=== PATIENT | female | born 1990 | race Caucasian/White ===

== ENCOUNTER 2017-08-31 10:25 | Emergency (ER) | END 2017-08-31 14:05 | disposition home or self-care (01) ==

== ENCOUNTER 2017-10-20 12:53 | Emergency (ER) | END 2017-10-21 05:48 | disposition home or self-care (01) ==

== ENCOUNTER 2018-04-12 08:45 | Emergency (ER) | END 2018-04-12 12:07 | disposition home or self-care (01) ==

== ENCOUNTER 2018-08-14 07:36 | Emergency (ER) | payer OTHER ==
[~2018-08-14] VITALS: Ht 165.1 cm; Wt 100.0 kg
[2018-08-14 07:39] VITALS: BP 134/87; PULSE 98; RESP 20; Ht 165.1 cm; Wt 100.0 kg
[2018-08-14] MEDS ORDERED: NAPR-985 PO (08:05)
[2018-08-14] MEDS ORDERED: CEPH-443 PO (08:05)
[2018-08-14] MEDS ORDERED: SULF1TAB31 PO (08:05)
--- NOTE | 2018-08-14 10:18 | ERD ---
ER Documentation Chief Complaint Chief Complaint Complains of swelling of the legs caused by a scracth from a dog HPI 27 year-old [female] coming in today with Chief Complaint: Skin injury History of Present Illness: Family member bring patient in today with complaint of swelling of legs; patient reports she believes it was due to a dog scratching her. Skin lesion noted to medial left lower extremity, below the knee. Patient also reporting pain to the fifth toe of left foot. Denies any other associated symptoms. Denies use of medications at home for symptoms. Review of systems: All systems were reviewed and are negative except for what is indicated in the history of present illness. Past Medical History: Cerebral palsy, GERD, migraines, chronic leg swelling Social History: Cholecystectomy, ovarian cyst removal Medications: [Reviewed as documented Nursing Notes] Allergies: [NKDA] Social Concerns: Denies ROS All systems reviewed and are negative except as per history of present illness. Medications Home Meds Active Scripts Naproxen* (Naprosyn*) 500 Mg Tablet, 500 MG PO BID PRN for PAIN AND/OR INFLAMMATION, #30 TAB Prov:WILL PEREZ V [employer]ATION[employer] 08/14/18 Cephalexin* (Keflex*) 500 Mg Capsule, 500 MG PO QID for skin infection for 7 Days, CAP Prov:WILL PEREZ [employer]ATIONIST 08/14/18 Sulfamethoxazole/Trimethoprim* (Bactrim Ds* Tablet) 1 Each Tablet, 1 TAB PO BID for 7 Days, #14 TAB Prov:WILL PEREZ [employer]ATIONIST 08/14/18 Allergies Allergies: Coded Allergies: No Known Allergy (Unverified , 07/12/18) PMhx/Soc History of Surgery: Yes (APPENDIX, GALL BLADDER, OVARAIN CYST ) Anesthesia Reaction: No Hx Neurological Disorder: Yes (CEREBRAL PALSY) Hx Respiratory Disorders: No Hx Cardiac Disorders: No Hx Psychiatric Problems: No Hx Miscellaneous Medical Probl: No Hx Alcohol Use: No Hx Substance Use: No Hx Tobacco Use: No FmHx Family History: diabetes; No coronary disease Physical Exam Vitals Vital Signs Date Temp Pulse Resp B/P (MAP) Pulse Ox O2 O2 Flow FiO2 Time Delivery Rate 08/14/18 98.6 98 20 134/87 100 07:39 (103) Physical Exam Const: No acute distress Head: Atraumatic Eyes: Normal Conjunctiva ENT: Normal External Ears, Nose and Mouth. Neck: Full range of motion. No meningismus. Resp: Clear to auscultation bilaterally Cardio: Regular rate and rhythm, no murmurs Abd: Soft, non tender, non distended. Normal bowel sounds Skin: No petechiae or rashes Back: No midline or flank tenderness Ext: No cyanosis; 1+ edema noted to the lateral extremities; 2 cm area of erythema noted to medial aspect of left lower extremity below-knee, indurated, warm, no surrounding cellulitis, no fluctuance, no streaking; erythema, warmth, and tenderness to palpation noted to the toe left foot, no streaking, NVI Neur: Awake and alert Psych: Normal Mood and Affect Procedures/MDM ED course includes a thorough examination and history. ED course includes x-ray of left foot, deferred due to patient request; education given for strict follow-up for worsening of condition. Unable to rule out pathological findings without x-ray, including osteomyelitis. Low suspicion for life-threatening medical emergency or sepsis orthopedic medical emergency Otherwise healthy patient presenting with constellation of symptoms likely representing uncomplicated abscess to left lower extremity and cellulitis toe as characterized by history, physical exam findings. No respiratory distress, otherwise relatively well appearing and nontoxic. Patient educated on diagnoses, prescriptions [Bactrim and cephalexin], follow-up care, return precautions. Strict return precautions given for worsening condition; questions answered discharge. Disposition for discharge with followup in 2-3 days with PCP/clinic to ensure that antibiotics are treating infection appropriately and infection is not worsening. Departure Diagnosis: Primary Impression: Abscess of leg, left Additional Impression: Cellulitis of fifth toe, left Condition: Stable Patient Instructions: Abscess, Antiobiotic Treatment Only, Cellulitis Referrals: [facility] YOU HAVE RECEIVED A MEDICAL SCREENING EXAM AND THE RESULTS INDICATE THAT YOU DO NOT HAVE A CONDITION THAT REQUIRES URGENT TREATMENT IN THE EMERGENCY DEPARTMENT. FURTHER EVALUATION AND TREATMENT OF YOUR CONDITION CAN WAIT UNTIL YOU ARE SEEN IN YOUR DOCTORS OFFICE WITHIN THE NEXT 1-2 DAYS. IT IS YOUR RESPONSIBILITY TO MAKE AN APPOINTMENT FOR FOLOW-UP CARE. IF YOU HAVE A PRIMARY DOCTOR --you should call your primary doctor and schedule an appointment IF YOU DO NOT HAVE A PRIMARY DOCTOR YOU CAN CALL OUR PHYSICIAN REFERRAL HOTLINE AT IF YOU CAN NOT AFFORD TO SEE A PHYSICIAN YOU CAN CHOSE FROM THE FOLLOWING COUNTS INCLUDE 234 BEDS AT THE [facility] [address] [facility] [place] [facility] [address] [facility] [address] [facility] [address] [facility] [address] [facility]. [facility] [address] [facility]. [facility] YOU HAVE RECEIVED A MEDICAL SCREENING EXAM AND THE RESULTS INDICATE THAT YOU DO NOT HAVE A CONDITION THAT REQUIRES URGENT TREATMENT IN THE EMERGENCY DEPARTMENT. FURTHER EVALUATION AND TREATMENT OF YOUR CONDITION CAN WAIT UNTIL YOU ARE SEEN IN YOUR DOCTORS OFFICE WITHIN THE NEXT 1-2 DAYS. IT IS YOUR RESPONSIBILITY TO MAKE AN APPOINTMENT FOR FOLOW-UP CARE. IF YOU HAVE A PRIMARY DOCTOR --you should call your primary doctor and schedule and appointment IF YOU DO NOT HAVE A PRIMARY DOCTOR YOU CAN CALL OUR PHYSICIAN REFERRAL HOTLINE AT . IF YOU CAN NOT AFFORD TO SEE A PHYSICIAN YOU CAN CHOSE FROM THE FOLLOWING [facility]: [facility] [address] [place] [address] [facility] [address] [place] [address] [facility] [address] [place] [address] Additional Instructions: Call your primary care doctor TOMORROW for an appointment during the next 2-3 days.See the doctor sooner or return here if your condition worsens before your appointment time. See your primary care doctor in 2-3 days for a recheck of abscess to ensure it is not worsening. Since you don't have a migraine today, you will need to see your primary care doctor for alternative medication treatment since your medication at home. WILL PEREZ NP Aug 14, 2018 10:18
== END 2018-08-14 08:26 | disposition home or self-care (01) ==
LOC: FTE 07:36
DX: L02.416 Cutaneous abscess of left lower limb (principal); L03.032 Cellulitis of left toe
CPT/HCPCS: 99283

== ENCOUNTER 2019-04-12 17:42 | Emergency (ER) | payer OTHER ==
[~2019-04-12] VITALS: Ht 167.6 cm; Wt 118.2 kg
[~2019-04-12 17:42] MED LIST: CEPH-443 PO; CLOT15CR6 TOP; FER325 PO; FOLI-49 PO; LUTE1CAP6 PO; NAPR-985 PO; ONDA4TAB14 PO; SULF1TAB31 PO
[2019-04-12 17:46] VITALS: Ht 167.6 cm; Wt 118.2 kg
[2019-04-12] MEDS ORDERED: KETOROLAC 30 MG INJ IV STA (19:36)
[2019-04-12] MEDS ORDERED: SOD CHLORIDE 0.9% 1,000 ML IV STA ×2 (19:36→21:53)
[2019-04-12] MEDS ORDERED: ONDANSETRON 4 MG INJ IV STA ×2 (19:36→21:53)
[2019-04-12] MEDS ORDERED: DICYCLOMINE 10 MG CAP PO ONE (20:00)
[2019-04-12 23:52] VITALS: BP 114/75; PULSE 89; RESP 18
== END 2019-04-13 00:46 | disposition home or self-care (01) ==
LOC: E/R 17:42
DX: N83.201 Unspecified ovarian cyst, right side (principal); R40.2142 Coma scale, eyes open, spontaneous, at arrival to emergency department; R40.2362 Coma scale, best motor response, obeys commands, at arrival to emergency department; R40.2252 Coma scale, best verbal response, oriented, at arrival to emergency department
CPT/HCPCS: 74176; 80053; 81001; 83690; 84703; 85025; 96361; 96374; 96375; 96376; J1885; J2405; J7030; Z7502; Z7610